=== PATIENT | female | born 1960 | race Caucasian/White ===

== ENCOUNTER 2016-07-27 15:55 | Emergency (ER) | payer MEDICAID ==
[~2016-07-27] VITALS: Ht 157.5 cm; Wt 78.5 kg
[~2016-07-27 15:55] MED LIST: CYCL-319 PO; NAPR-260 PO
[2016-07-27 15:59] VITALS: Ht 157.5 cm; Wt 78.5 kg
[2016-07-27] MEDS ORDERED: IBUPROFEN 800 MG TAB PO ONE (17:30)
--- NOTE | 2016-07-27 18:00 | RADRPT ---
PROCEDURE: XR Knee. CLINICAL INDICATION: Right knee pain. TECHNIQUE: Three views of the right knee are available for review. COMPARISON: None available FINDINGS: No acute fracture or dislocation is seen. Mild tricompartmental degenerative changes of knee are no stepan. No radiopaque foreign body is identified. Alignment is anatomic. No significant soft tissue sw elling is present. Mild suprapatellar effusion is noted per IMPRESSION: 1. No acute fracture or dislocation is seen. 2. Mild tricompartmental knee osteoarthrosis. 3. Mild suprapatellar effusion. RPTAT: HH .Flori Zavala MD, Date Time Electronically viewed and signed by .Flori Zavala MD, on 07/27/2016 18:00 .N/
--- NOTE | 2016-07-27 18:06 | RADRPT ---
PROCEDURE: US right lower extremity veins. CLINICAL INDICATION: Right leg pain and swelling. TECHNIQUE: Multiple longitudinal and transverse images of the right lower extremity veins were obt ained with schmidt scale and color Doppler imaging. The common femoral vein, femoral vein, and poplitea l vein were evaluated. 2D grayscale measurements with compression sonography, pulsed Doppler, color Doppler, and pulsed Doppler with augmentation. COMPARISON: No prior studies are available for comparison. FINDINGS: The right common femoral, femoral and popliteal veins are normally compressible throughout. Color f low demonstrates normal filling of the vessels. Normal waveforms are visualized and there is normal response to augmentation. IMPRESSION: 1. No evidence of deep vein thrombosis involving the right lower extremity. RPTAT: QQ .Joe Simms MD, MD Date Time Electronically viewed and signed by .Joe Simms MD, on 07/27/2016 18:06 .R/
[2016-07-27] MEDS ORDERED: IBUP-1542 PO (18:15)
[2016-07-27] MEDS ORDERED: HYDR-902 PO (18:15)
--- NOTE | 2016-07-27 18:35 | ERD ---
ER Documentation Chief Complaint Date/Time DATE: 07/27/16 TIME: 18:33 Chief Complaint RIGHT BELOW KNEE PAIN HPI Patient is a 56-year-old female with no medical problems who presents with right knee and leg pain. She has had 5 days of swelling to the right knee and pain in her right calf. She also feels pain in the back of her knee. She tried Tylenol. She had subjective fever but did not take her temperature. She has had no trauma. She does not currently have a primary doctor. The pain is worse with movement. ROS All systems reviewed and are negative except as per history of present illness. Medications Home Meds Active Scripts Hydrocodone/Acetaminophen ([place] 10-325 Tablet) 1 Each Tablet, 1 TAB PO Q6H Y for PAIN, #7 TAB Prov:DEANA TRAN MD 07/27/16 Ibuprofen* (Motrin*) 600 Mg Tab, 600 MG PO Q6H Y for PAIN AND OR ELEVATED TEMP, #30 TAB Prov:DEANA TRAN MD 07/27/16 Cyclobenzaprine Hcl* (Cyclobenzaprine Hcl*) 10 Mg Tablet, 10 MG PO Q8 Y for muscle spasms for 5 Days, #15 TAB Prov:MANAGMUNAOD,MIGUEL P BREAKER LAYER 01/15/16 Naproxen* (Naprosyn*) 500 Mg Tablet, 500 MG PO BID Y for PAIN AND/OR INFLAMMATION for 10 Days, #30 TAB Prov:MANAGMUNAOD,MIGUEL P BREAKER LAYER 01/15/16 Allergies Allergies: Coded Allergies: No Known Allergy (Unverified , 01/15/16) PMhx/Soc History of Surgery: No Anesthesia Reaction: No Hx Neurological Disorder: No Hx Respiratory Disorders: No Hx Cardiac Disorders: Yes (HTN , HIGH CHOLESTERL ) Hx Psychiatric Problems: No Hx Miscellaneous Medical Probl: No Hx Alcohol Use: No Hx Substance Use: No Hx Tobacco Use: No FmHx Family History: diabetes Physical Exam Vitals Vital Signs Date Time Temp Pulse Resp B/P Pulse Ox O2 Delivery O2 Flow Rate FiO2 07/27/16 15:59 98.1 80 20 152/80 99 Physical Exam Const: No acute distress Head: Atraumatic Eyes: Normal Conjunctiva ENT: Normal External Ears, Nose and Mouth. Neck: Full range of motion..~ No meningismus. Resp: Clear to auscultation bilaterally Cardio: Regular rate and rhythm, no murmurs Abd: Soft, non tender, non distended. Normal bowel sounds Skin: No petechiae or rashes Back: No midline or flank tenderness Ext: Swelling to the right knee, no obvious joint effusion palpated, no warmth to touch, no redness over the knee, full range of motion Neur: Awake and alert Psych: Normal Mood and Affect Results 24 hrs Current Medications Medications (Trade) Dose Ordered Sig/Taylor Route PRN Reason Start Time Stop Time Status Last Admin Dose Admin Ibuprofen (Motrin) 800 mg ONCE ONCE PO 07/27/16 17:30 07/27/16 17:31 DC 07/27/16 17:10 Procedures/MDM X-ray shows arthritis per radiology. Ultrasound of the right lower extremity is negative for DVT per radiology. Splint Note Type: Knee immobilizer Location: Right lower extremity Indication: Right knee pain with swelling Splint Assessment: Neurovascularly intact post splint placement with good fit. Patient is a 56-year-old female who presents with right-sided knee pain and swelling. She was found to have arthritis on her x-ray. At this point I doubt septic arthritis. There is no sign of DVT on her ultrasound. There is no fracture or dislocation. At this point I believe outpatient management is appropriate. I will give her information for Dr. Damon from orthopedic surgery. The patient can return for any worsening symptoms. The patient understands the plan and is okay for outpatient management at this time. There is no obvious joint effusion that could be drained at this time. Departure Diagnosis: Primary Impression: Osteoarthritis Osteoarthritis location: knee Osteoarthritis type: primary Laterality: right Qualified Code: M17.11 - Primary osteoarthritis of right knee Additional Impression: Pain of right leg Condition: Fair Patient Instructions: Osteoarthritis Referrals: CELI DAMON MD Additional Instructions: Specialist:Usted tiene lázaro condicin mdica que requiere que sherron a un especialista dentro de los prximos 1-2 [place].POR FAVOR,CON ROGEL SEGUIMIENTO DE PRIMARIA PHSICIAN refferal. SI USTED NO TIENE UN MDICO GENERAL Y / O USTED NO PUEDE PAGAR dillon a un mdico,los siguientes allen RECURSOS sido suministrado a usted. ES ROGEL RESPONSABILIDAD PARA SER VISTOS POR EL ESPECIALISTA: DEANA TRAN MD Jul 27, 2016 18:35
[2016-07-27 18:59] VITALS: BP 154/82; PULSE 65; RESP 18; TEMP 98.1
== END 2016-07-27 19:00 | disposition home or self-care (01) ==
LOC: FTE 15:55
DX: M17.11 Unilateral primary osteoarthritis, right knee (principal); I10 Essential (primary) hypertension
CPT/HCPCS: 29505; 73562; 93971; Z7502; Z7610

== ENCOUNTER 2017-03-31 10:47 | Emergency (ER) | payer MEDICAID, OTHER ==
[~2017-03-31] VITALS: Ht 157.5 cm; Wt 76.0 kg
[~2017-03-31 10:47] MED LIST changes: +HYDR-902 PO; +IBUP-1542 PO
[2017-03-31 10:52] VITALS: Ht 157.5 cm; Wt 76.0 kg
[2017-03-31] MEDS ORDERED: CETI10CA PO (11:25)
[2017-03-31] MEDS ORDERED: HC30CR25 TOP (11:25)
--- NOTE | 2017-03-31 11:29 | ERD ---
ER Documentation Chief Complaint Date/Time DATE: 03/31/17 TIME: 11:27 Chief Complaint itchy facial rash x4 days HPI This 57-year-old female presents with a itchy facial rash for last 4 days. She denies any new creams or potential allergens. She denies fevers, sore throat, cough, additional symptoms. ROS All systems reviewed and are negative except as per history of present illness. Medications Home Meds Active Scripts Cetirizine Hcl* (Zyrtec*) 10 Mg Capsule, 10 MG PO DAILY, #15 TAB.CHEW Prov:RACHAEL MARTÍNEZ MD 03/31/17 Hydrocortisone* Topical (Hydrocortisone* Topical) 2.5%-28.3 Gm Cream..g., 1 APPLIC TOP BID for 7 Days, #1 TUB Prov:RACHAEL MARTÍNEZ MD 03/31/17 Hydrocodone/Acetaminophen ([place] 10-325 Tablet) 1 Each Tablet, 1 TAB PO Q6H Y for PAIN, #7 TAB Prov:DEANA TRAN MD 07/27/16 Ibuprofen* (Motrin*) 600 Mg Tab, 600 MG PO Q6H Y for PAIN AND OR ELEVATED TEMP, #30 TAB Prov:DEANA TRAN MD 07/27/16 Cyclobenzaprine Hcl* (Cyclobenzaprine Hcl*) 10 Mg Tablet, 10 MG PO Q8 Y for muscle spasms for 5 Days, #15 TAB Prov:MIGUEL SHAH P TIMBER SIZER OPERATOR 01/15/16 Naproxen* (Naprosyn*) 500 Mg Tablet, 500 MG PO BID Y for PAIN AND/OR INFLAMMATION for 10 Days, #30 TAB Prov:MIGUEL SHAH P TIMBER SIZER OPERATOR 01/15/16 Allergies Allergies: Coded Allergies: No Known Allergy (Unverified , 01/15/16) PMhx/Soc Medical and Surgical Hx: pt denies Medical Hx, pt denies Surgical Hx History of Surgery: No Anesthesia Reaction: No Hx Neurological Disorder: No Hx Respiratory Disorders: No Hx Cardiac Disorders: Yes (HTN , HIGH CHOLESTERL ) Hx Psychiatric Problems: No Hx Miscellaneous Medical Probl: No Hx Alcohol Use: No Hx Substance Use: No Hx Tobacco Use: No Physical Exam Vitals Vital Signs Date Time Temp Pulse Resp B/P Pulse Ox O2 Delivery O2 Flow Rate FiO2 03/31/17 10:52 97.5 74 18 169/95 96 Physical Exam Const: [], [id number]. Head: Atraumatic Eyes: Normal Conjunctiva ENT: Normal External Ears, Nose and Mouth.Oropharynx normal. Neck: Full range of motion..~ No meningismus. Resp: Clear to auscultation bilaterally Cardio: Regular rate and rhythm, no murmurs Abd: Soft, non tender, non distended. Normal bowel sounds Skin: No petechiae or Purpura. There is a slightly irritated fine maculopapular rash on the perioral area and cheeks and chin. There is no warmth , streaking, induration Back: No midline or flank tenderness Ext: No cyanosis, or edema Neur: Awake and alert Psych: Normal Mood and Affect Procedures/MDM Patient presents with a nonspecific dermatitis on the cheeks lower face. There is no warmth to suggest cellulitis or erysipelas. There is no evidence of lengthening rashes or anaphylaxis. She will be treated with Zyrtec and hydrocortisone and further observation at home.The patient was stable with no new complaints during the ER course. Clinically, there is no current evidence to suggest meningitis, sepsis, acute abdomen, pneumonia, acute coronary syndrome , pulmonary embolism, or any other emergent condition appearing to require further evaluation or hospitalization. The patient should certainly return for any new or worsening symptoms per the aftercare instructions. They should otherwise follow-up with her primary care doctor for reevaluation this week. Departure Diagnosis: Primary Impression: Rash Condition: Stable Patient Instructions: Dermatitis, Non-Specific Additional Instructions: . Cheque otro vez con lowe doctor primario en el proximo bryan or regresa para mas o nueva simptomas. RACHAEL MARTÍNEZ MD Mar 31, 2017 11:29
== END 2017-03-31 13:36 | disposition home or self-care (01) ==
LOC: FTE 10:47
DX: R21 Rash and other nonspecific skin eruption (principal); I10 Essential (primary) hypertension
CPT/HCPCS: 99283